=== PATIENT | female | born 1980 | race African-American/Black ===

== ENCOUNTER 2017-06-17 17:44 | Emergency (ER) | payer MEDICAID ==
--- NOTE | 2017-06-17 18:14 | ED Physician Chart ---
Chief Complaint/HPI - Patient Information Date Seen:: 06/17/17 Time Seen:: 17:55 Chief Complaint:: Skin lesions in L axillary region and near L breast for 4 days. History of Present Illness:: As above. Pt has had recurrence of same type of skin lesions intermittently over past 10 years. Pt denies fever. Taking po well without N/V/D. No lightheadedness. Pt states that she responded well to oral clindamycin in the past for this skin condition. Pt requests to have a prescription for clindamycin. Allergies:: Allergies Allergy/AdvReac Type Severity Reaction Status Date / Time No Known Allergies Allergy Verified 06/17/17 17:58 Vitals:: Vital Signs - 8 hr 06/17/17 17:59 Temp 98.1 F HR 113 RR 18 BP 150/96 O2 Sat % 97 Historian:: Patient Family MD/PCP:: Dr. Correia LMP:: 06/02/17. Review:: Nurse's Note Reviewed Review of Systems - Review of Systems General/Constitutional: No fever, No chills, No weight loss, No weakness, No edema, No loss of appetite Skin: Skin lesions (see HPI.) Head: No headache, No light-headedness Eyes: No loss of vision, No pain, No diplopia ENT: No earache, No nasal drainage, No sore throat, No tinnitus Neck: No neck pain, No swelling, No thyromegaly, No stiffness, No mass noted Cardio Vascular: No chest pain, No palpitations, No edema Pulmonary: No SOB, No cough, No wheezing GI: No nausea, No vomiting, No diarrhea, No pain G/U: No dysuria, No frequency, No hematuria Rig Builder Helper: No vaginal discharge, No abnormal vaginal bleed Musculoskeletal: No bone or joint pain, No back pain, No muscle pain Endocrine: No polyuria, No polydipsia Psychiatric: No prior psych history Hematopoietic: No bruising, No lymphadenopathy Allergic/Immuno: No urticaria, No angioedema Neurological: No syncope, No focal symptoms, No weakness, No paresthesia, No headache, No confusion Past Medical History - Past Medical History Past Medical History: No significant medical hx Family History: Diabetes Melitus (father), HTN (parents) Social History: Non Smoker, No Alcohol, No Drug Use, , Lives Alone, Employed Employment:: customer service security officer. Surgical History: None Psychiatricy History: None Medication: None Family Medical History - Family Member Mother History Unknown: Yes Physical Exam - Physical Examination General/Constitutional: Awake, Well-developed, well-nourished, Alert, No distress, GCS 15, Non-toxic appearing, Ambulatory Other Gen/Cons comments:: Breathes comfortably, speaks clearly, interacts normally, and ambulates without difficulty. Head: Atraumatic Eyes: Lids, conjuctiva normal, PERRL, EOMI Skin: No ecchymosis, Well hydrated, No lymphadenopathy Other Skin comments:: L axillary region shows an approx 1 cm indurated slightly open lesion with erythema at anteroinferior aspect. No red streaking, crepitus, or exudate. There are numerous well healed scars noticed in her L axilla.There is a similar skin lesion approx. 1 cm just medial to L breast. No red streaking, crepitus, or exudate. The examination was performed in the presence of female nurse Eda. ENMT: External ears, nose nl, Nasal exam nl, Oropharynx nl Neck: Nontender, Full ROM w/o pain, No nuchal rigidity, No mass, No stridor Respiratory: Nl effort/Exclusion, Clear to Auscultation, No Wheeze/Rhonchi/Rales Cardio Vascular: RRR (HR 92), No murmur, gallop, rubs Extremities: No edema Neuro/Psych: Alert/oriented (oriented x 3), Judgement/insight normal, Mood normal, Normal gait, No focal deficits ED Septic Shock - . Is Septic Shock (SBP<90, OR Lactate>4 mmol\L) present?: No - <6hrs of presentation: Vital Signs: Vital Signs - 8 hr 06/17/17 17:59 Temp 98.1 F HR 113 RR 18 BP 150/96 O2 Sat % 97 Reassessment (Disposition) - Reassessment Reassessment:: 1850 Pt remains stable. Pt requests to go home now. Aftercare instructions have been given. - Diagnosis Diagnosis:: Hidradenitis suppurativa with early superimposed infection. Stable. - Aftercare/Follow up Instructions Aftercare/Follow-Up Instructions:: Refer to Discharge Instructions Notes:: Keep affected areas clean and dry. Wound care instruction given. May take Motrin 200 mg tab 4 tabs po q8h as directed. F/U with PCP Dr. Correia in one day for recheck. Return to ER immediately if condition worsens or if any further questions/problems. Medication Prescribed:: Clindamycin 300 mg tab one tab po q6h for 10 days. D-40 R-0 - Patient Disposition Discharge/Transfer:: Home Time:: 18:50 Condition at Disposition:: Stable, Improved ED Discharge Plan - Patient Disposition Admit/Discharge/Transfer: PT DISCHARGED HOME Condition at Disposition: Stable Instructions: Hidradenitis Suppurativa, Sweat Gland Abscess Accepting Physician: Jacek Us [Active] -
== END 2017-06-17 18:57 | disposition home or self-care (01) ==
LOC: ER 17:44
DX: L73.2 Hidradenitis suppurativa (principal)
CPT/HCPCS: Z7502; Z7610

== ENCOUNTER 2017-11-15 21:31 | Emergency (ER) | payer MEDICAID ==
--- NOTE | 2017-11-16 00:42 | ED Physician Chart ---
ED Chief Complaint/HPI - Patient Information Date Seen:: 11/16/17 Time Seen:: 00:20 Chief Complaint:: lower leg numbness and swelling History of Present Illness:: Patient's had lower leg swelling and numbness for 2-3 days. No chest pain or shortness of breath. Patient has also noted numerous gonzalez on both lower legs right more than left. Allergies:: Allergies Allergy/AdvReac Type Severity Reaction Status Date / Time No Known Allergies Allergy Verified 10/31/17 21:51 Vitals:: Vital Signs - 8 hr 11/15/17 21:40 Temp 97.6 F HR 81 RR 17 BP 128/73 O2 Sat % 96 Historian:: Patient Review:: Nurse's Note Reviewed ED Review of Systems - Review of Systems General/Constitutional: No fever, No chills Skin: Skin lesions Head: No headache Eyes: No loss of vision ENT: No earache Neck: No neck pain, No swelling Cardio Vascular: No chest pain Pulmonary: No SOB GI: No nausea, No vomiting G/U: No dysuria Musculoskeletal: Other (see history and physical) Endocrine: No polyuria Psychiatric: No prior psych history ED Past Medical History - Past Medical History Past Medical History: No significant medical hx Family History: Diabetes Melitus, HTN Social History: Non Smoker, No Alcohol Surgical History: other (swelling glands axilla) Psychiatricy History: None Medication: None Family Medical History - Family Member Mother History Unknown: Yes Ethnicity: Non- ED Physical Exam - Physical Examination General/Constitutional: Well-developed, well-nourished, Alert, No distress Head: Atraumatic Eyes: Lids, conjuctiva normal, PERRL Other Skin comments:: Numerous linear gonzalez on both lower legs. Each bailee is brown and about 1 cm long. ENMT: External ears, nose nl Neck: No nuchal rigidity Respiratory: Nl effort/Exclusion, Clear to Auscultation Cardio Vascular: RRR, No murmur, gallop, rubs GI: No tenderness/rebounding/guarding : No CVA tenderness Other Extremities comments:: See under skin Neuro/Psych: Alert/oriented, No focal deficits Misc: Normal back ED Labs/Radiology/EKG Results - Lab Results Results: Laboratory Results - last 24 hr 11/16/17 01:50 D-Dimer 774 H - Radiology Results Results: Ultrasound: non-diagnostic ED Assessment - Assessment General Assessment: D-dimer is elevated but it is only specific is negative. The markss on the lower legs look like very superficial abrasions. ED Septic Shock - . Is Septic Shock (SBP<90, OR Lactate>4 mmol\L) present?: No - <6hrs of presentation: Vital Signs: Vital Signs - 8 hr 11/15/ 21:40 Temp 97.6 F HR 81 RR 17 BP 128/73 O2 Sat % 96 ED Reassessment (Disposition) - Reassessment Reassessment Condition:: Unchanged - Diagnosis Diagnosis:: Paresthesias lower legs - Aftercare/Follow up Instructions Aftercare/Follow-Up Instructions:: Refer to Discharge Instructions - Patient Disposition Discharge/Transfer:: Home Condition at Disposition:: Stable, Unchanged
== END 2017-11-16 02:55 | disposition home or self-care (01) ==
LOC: ER 21:31
DX: R20.2 Paresthesia of skin (principal)
CPT/HCPCS: 36415-UA; 85379-TC; Z7502

== ENCOUNTER 2017-11-20 17:27 | Emergency (ER) | payer MEDICAID ==
--- NOTE | 2017-11-20 23:44 | ED Physician Chart ---
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
[2017-11-21 00:53] LABS: URINE MICROSCOPIC INDICATED? YES; URINE SOURCE RANDOM
[2017-11-21 00:57] LABS: % BASOPHILS 0.4 % (0.0-2.0); % EOSINOPHILS 3.5 % (0.0-5.0); % LYMPHOCYTES 20.3 % (20.0-50.0); % NEUTROPHILS 68.8 % (40.0-80.0); EOSINOPHILE ABSOLUTE 0.3 Th/cmm (0.1-0.4); HEMATOCRIT 34.4 % (41.0-60); HEMOGLOBIN 11.2 gm/dL (12-16); MEAN CELL VOLUME 82.8 fl (81-100); MEAN CORPUSCULAR HGB CONC 32.6 pg (28.0-36.0); MEAN PLATELET VOLUME 7.7 fl; MONOCYTE ABSOLUTE 0.7 Th/cmm (0.3-1.0); NEUTROPHILE ABSOLUTE 6.9 Th/cmm (1.8-8.0); PLATELET COUNT 367 Th/cmm (150-400); RED BLOOD COUNT 4.16 Mil/cmm (3.80-5.10); RED CELL DISTRIBUTION WIDTH 14.1 % (11.5-20.0); WHITE BLOOD COUNT 9.9 Th/cmm (4.8-10.8)
[2017-11-21] MEDS ORDERED: cefTRIAXone 1 GM in Sodium Chloride 0.9% 50 ML IV ONE (01:02)
[2017-11-21 01:07] LABS: URINE BILIRUBIN NEGATIVE (NEGATIVE); URINE BLOOD TRACE (NEGATIVE); URINE GLUCOSE (UA) NEGATIVE (NEGATIVE); URINE KETONE NEGATIVE (NEGATIVE); URINE LEUKOCYTE ESTERASE NEGATIVE (NEGATIVE); URINE NITRATE NEGATIVE (NEGATIVE); URINE PH 5.5 (4.6 - 8.0); URINE PROTEIN NEGATIVE (NEGATIVE); URINE UROBILINOGEN 0.2 E.U./dL (0.2 - 1.0)
[2017-11-21 01:17] LABS: ALB/GLOB RATIO 0.9 (1.0-1.8); ALBUMIN 3.7 gm/dL (3.7-5.3); ALKALINE PHOSPHATASE 56 U/L (34-104); ANION GAP 11.1 (7.0-16.0); BILIRUBIN,TOTAL 0.2 mg/dL (0.3-1.0); BUN - UREA NITROGEN 12 mg/dL (7-25); CALCIUM SERUM 9.1 mg/dL (8.6-10.3); CARBON DIOXIDE 22.8 mEq/L (21.0-31.0); CHLORIDE 108 mEq/L (98-107); CREATININE - SERUM 0.7 mg/dL (0.6-1.2); GFR AFRICAN-AMERICAN > 60.0 ml/min (>90); GFR NON AFRICAN-AMERICAN > 60.0 ml/min; GLUCOSE 105 mg/dL (70-105); POTASSIUM SERUM 3.9 mEq/L (3.5-5.1); SGOT 13 U/L (13-39); SGPT/ALT 10 U/L (7-52); SODIUM SERUM 138 mEq/L (136-145); TOTAL PROTEIN,SERUM 7.8 gm/dL (6.0-8.3)
[2017-11-21 01:28] LABS: URINE CLARITY CLEAR (CLEAR); URINE COLOR YELLOW
[2017-11-21 01:30] LABS: URINE BACTERIA MODERATE /hpf (NONE SEEN); URINE EPITHELIAL CELLS MANY /lpf (FEW); URINE WBC 0-2 /hpf (0-5)
--- NOTE | 2017-11-21 08:24 | Diagnostic Imaging Report ---
Exam: Right wrist joint. HISTORY: Trauma. Findings: Multiple views of the right wrist joint reviewed. The study demonstrates no evidence of fracture or dislocation. The radiocarpal joint is intact. The carpal bones are normal. IMPRESSION: Normal examination right wrist joint.
== END 2017-11-21 02:55 | disposition home or self-care (01) ==
LOC: ER 17:27
DX: M79.89 Other specified soft tissue disorders (principal); M79.644 Pain in right finger(s); Z88.8 Allergy status to other drugs, medicaments and biological substances
CPT/HCPCS: 99285; 96365; 96368; 96375; 73110; 36415; 85025; 87086; 81001; 80053; J1885; J0696; J3370

== ENCOUNTER 2018-02-09 17:39 | Emergency (ER) | payer MEDICAID ==
--- NOTE | 2018-02-09 18:31 | ED Physician Chart ---
ED Chief Complaint/HPI - Patient Information Date Seen:: 02/09/18 Time Seen:: 18:29 Chief Complaint:: Bilateral axillary hidradenitis, left breast hidradenitis History of Present Illness:: 37 yo female had bilateral axillary hidradenitis and left breast hidradenitis for 15 years relapsed for 2 days. Pain with purulent drainage. Tried hot compress and shower at home which did not help. She had been seeing a molder foam rubber and the next appointment would be in 3 weeks. Patient had 2 surgeries prior and additional surgery is needed. In the past, the effective treatment regimen for the patient were: Solu-medrol, Toradol, Rocephin in the ER followed by oral bactrim DS, clindamycin, prednisone at home. Allergies:: Allergies Allergy/AdvReac Type Severity Reaction Status Date / Time No Known Allergies Allergy Verified 02/09/18 18:08 Vitals:: Vital Signs - 8 hr 02/09/18 17:50 Temp 97.2 F HR 104 RR 18 O2 Sat % 100 ED Review of Systems - Review of Systems General/Constitutional: No fever Skin: Skin lesions Head: No headache Eyes: No pain ENT: No nasal drainage Neck: No neck pain Cardio Vascular: No chest pain Pulmonary: No SOB GI: No nausea, No vomiting Musculoskeletal: No bone or joint pain Psychiatric: No prior psych history Neurological: No focal symptoms ED Past Medical History - Past Medical History Past Medical History: Other (bilateral axillary hidradenitis, left breast hidradenitis) Social History: Non Smoker, No Alcohol, No Drug Use Surgical History: other (hidradenitis surgeries 2002, 2017) Family Medical History - Family Member Mother History Unknown: Yes Ethnicity: Non- ED Physical Exam - Physical Examination General/Constitutional: Awake, Alert Head: Atraumatic Eyes: PERRL Skin: No ecchymosis ENMT: Nasal exam nl Neck: No nuchal rigidity Respiratory: Clear to Auscultation, No Wheeze/Rhonchi/Rales Cardio Vascular: RRR, No murmur, gallop, rubs, NL S1 S2 GI: No tenderness/rebounding/guarding Other Extremities comments:: Multiple tender, scared, erythematous and nodular glands with purulent drainage in bilateral axillary areas, and underneath the left breast Neuro/Psych: No focal deficits ED Assessment - Assessment General Assessment: Bilateral axillary hidradenitis, left breast hidradenitis Assessment/Comments:: Rocephin 1g IM Toradol 30mg IM Solu-medrol 125mg IV D/c home Bactrim DS bid #20 Clindamycin 300mg q6h #40 Prednisone 40mg qd #8 F/u molder foam rubber and return to ER if symptoms worsen ED Septic Shock - . Is Septic Shock (SBP<90, OR Lactate>4 mmol\L) present?: No - <6hrs of presentation: Vital Signs: Vital Signs - 8 hr 02/09/18 17:50 Temp 97.2 F HR 104 RR 18 O2 Sat % 100 ED Reassessment (Disposition) - Reassessment Reassessment Condition:: Improved - Patient Disposition Discharge/Transfer:: Home
== END 2018-02-09 19:50 | disposition home or self-care (01) ==
LOC: ER 17:39
DX: L73.2 Hidradenitis suppurativa (principal)
CPT/HCPCS: 99284; 96372 ×2; 96374; J1885; J0696; J2930; Z7502

== ENCOUNTER 2018-02-17 19:38 | Emergency (ER) | payer MEDICAID ==
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
== END 2018-02-17 20:10 | disposition left against medical advice (07) ==
LOC: ER 19:38
DX: L73.2 Hidradenitis suppurativa (principal)
CPT/HCPCS: 99281; J1885; Z7502

== ENCOUNTER 2019-01-01 20:25 | Emergency (ER) | payer MEDICAID, OTHER ==
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
== END 2019-01-01 21:22 | disposition home or self-care (01) ==
LOC: ER 20:25
DX: S00.83XA Contusion of other part of head, initial encounter (principal); G44.1 Vascular headache, not elsewhere classified; Y04.8XXA Assault by other bodily force, initial encounter; Y93.89 Activity, other specified; Y92.89 Other specified places as the place of occurrence of the external cause; Y99.8 Other external cause status
CPT/HCPCS: 81025-TC; Z7502